=== PATIENT | female | born 1985 | race Caucasian/White ===

== ENCOUNTER 2018-09-17 00:56 | Emergency (ER) | payer SELFPAY ==
[2018-09-17 02:52] LABS: ABSOLUTE EOSINOPHILS # (AUTO) 0.3 10^3/uL (0.0-0.6); ABSOLUTE LYMPHOCYTES (AUTO) 1.9 10^3/uL (0.5-4.7); ABSOLUTE MONOCYTES (AUTO) 0.7 10^3/uL (0.1-1.4); ABSOLUTE NEUT (AUTO) 10.3 10^3/uL (1.7-8.2); BASOPHILS % (AUTO) 0.2 % (0-2); EOSINOPHILS % (AUTO) 2.2 % (0-6); HEMATOCRIT 42.3 % (36.0-47.0); HEMOGLOBIN 14.6 g/dL (12.0-15.5); LYMPHOCYTES % (AUTO) 14.6 % (13-45); MEAN CORPUSCULAR HEMOGLOBIN 29.2 pg (27.0-33.4); MEAN CORPUSCULAR HGB CONC 34.5 g/dL (32.0-36.0); MEAN CORPUSCULAR VOLUME 85 fl (80-97); MONOCYTES % (AUTO) 5.3 % (3-13); PLATELET COUNT 353 10^3/uL (150-450); RED BLOOD COUNT 5.01 10^6/uL (3.72-5.28); RED CELL DISTRIBUTION WIDTH 12.9 % (11.5-14.0); SEGMENTED NEUTROPHILS % (AUTO) 77.7 % (42-78); TOTAL CELLS COUNTED % (AUTO) 100 %; WHITE BLOOD COUNT 13.3 10^3/uL (4.0-10.5)
[2018-09-17 03:04] LABS: ALANINE AMINOTRANSFERASE 26 U/L (9-52); ALBUMIN 4.4 g/dL (3.5-5.0); ALKALINE PHOSPHATASE 75 U/L (38-126); ANION GAP 10 (5-19); ASPARTATE AMINO TRANSFERASE 23 U/L (14-36); BILIRUBIN,DIRECT 0.2 mg/dL (0.0-0.4); BILIRUBIN,TOTAL 0.3 mg/dL (0.2-1.3); BLOOD UREA NITROGEN 17 mg/dL (7-20); CALCIUM 10.1 mg/dL (8.4-10.2); CARBON DIOXIDE 24 mmol/L (22-30); CHLORIDE 105 mmol/L (98-107); GLUCOSE 103 mg/dL (75-110); LIPASE 78.8 U/L (23-300); POTASSIUM 4.6 mmol/L (3.6-5.0); SODIUM 138.6 mmol/L (137-145); TOTAL PROTEIN 7.9 g/dL (6.3-8.2)
[2018-09-17] MEDS ORDERED: NORMAL SALINE 1000 ML 1,000 ML IV ONE (03:06)
[2018-09-17] MEDS ORDERED: MORPHINE SULFATE 10 MG/ML INJ IV ONE (03:06)
[2018-09-17] MEDS ORDERED: ONDANSETRON HCL INJ/PF 4 MG/2 ML SDV IV ONE (03:06)
[2018-09-17] MEDS ORDERED: METOCLOPRAMIDE HCL ORAL SOLN 10 MG/10 ML UDCUP PO ONE (03:16)
[2018-09-17] MEDS ORDERED: LIDOCAINE 2% VISCOUS SOLN 20 ML UDCUP PO ONE (03:16)
[2018-09-17] MEDS ORDERED: MAG HYDROX/AL HYDROX/SIMETH SUSP 30 ML UDCUP PO ONE (03:16)
--- NOTE | 2018-09-17 04:17 | RADIOLOGY REPORT (SQ) ---
CLINICAL HISTORY: upper abdominal pain, RUQ COMPARISON: None. TECHNIQUE: US ABDOMEN DOPPLER LIMITED on 09/17/2018 3:05 AM [employer] INSPECTOR FINDINGS: Liver is fatty in echogenicity. There is no biliary dilatation. Gallbladder is normally distended without wall thickening, gallstones or pericholecystic fluid. Aorta is nonaneurysmal. Pancreas is not visualized. Common bile duct measures 3 mm. Right kidney measures 10.5 cm without hydronephrosis. IMPRESSION: Hepatic steatosis. Otherwise unremarkable right upper quadrant.
--- NOTE | 2018-09-17 04:18 | ER Document Report ---
ED General - General Chief Complaint: Abdominal Pain Stated Complaint: STOMACH PAIN Time Seen by Provider: 09/17/18 02:57 Notes: Patient is a pleasant 33-year-old female presents with complaint of epigastric abdominal pain. Some nausea and vomiting. Says is worse whenever she tries to eat or drink. Is been ongoing since Friday night which is approximately 3 days ago. No fevers. No diarrhea. No blood in emesis. No blood in her stool. No recent alcohol use. No history of any abdominal surgeries. She said there is no chance she could be . No dysuria. No other complaints at this time. TRAVEL OUTSIDE OF THE [place] IN LAST 30 DAYS: No - Related Data Allergies/Adverse Reactions: No Known Allergies Allergy (Verified 12/30/14 23:25) Past Medical History - Social History Smoking Status: Current Every Day Smoker Frequency of alcohol use: Social Drug Abuse: None Family History: Reviewed & Not Pertinent Patient has suicidal ideation: No Patient has homicidal ideation: No Renal/ Medical History: Denies: Hx Peritoneal Dialysis Review of Systems - Review of Systems Notes: My Normal Review Basic REVIEW OF SYSTEMS: CONSTITUTIONAL : Denies fever, chills, or sweats. Denies recent illness. RESPIRATORY: Denies cough, cold, or chest congestion. Denies shortness of breath, difficulty breathing, or wheezing. GASTROINTESTINAL: Gastric abdominal pain. Nausea and vomiting. GENITOURINARY: Denies difficulty urinating, painful urination, burning, frequency, or blood in urine. MUSCULOSKELETAL: Denies neck or back pain or joint pain or swelling. SKIN: Denies rash or skin lesions. NEUROLOGICAL: Denies altered mental status or loss of consciousness. Denies headache. Denies weakness or paralysis or loss of use of either side. Denies problems with gait or speech. Denies sensory or motor loss. ALL OTHER SYSTEMS REVIEWED AND NEGATIVE. Physical Exam - Vital signs Vitals: Temp Pulse Resp BP Pulse Ox 98.8 F 85 20 144/90 H 99 09/17/18 01:09/17/18 01:09/17/18 01:09/17/18 01:09/17/18 01:01 - Notes Notes: General Appearance: Well nourished, alert, cooperative, no acute distress, moderate obvious discomfort. Vitals: reviewed, See vital signs table. Head: no swelling or tenderness to the head Eyes: PERRL, EOMI, Conjuctiva clear Mouth: No decreasd moisture Lungs: No wheezing, No rales, No rhonci, No accessory muscle use, good air exchange bilaterally. Heart: Normal rate, Regular rythm, No murmur, no rub Abdomen: Normal BS, soft, No rigidity, No reproducible abdominal tenderness to palpation, No guarding, no rebound, no abdominal masses, no organomegaly Extremities: strength 5/5 in all extremities, good pulses in all extremities, no swelling or tenderness in the extremities, no edema. Skin: warm, dry, appropriate color, no rash Neuro: speech clear, oriented x 3, normal affect, responds appropriately to q uestions. Course - Re-evaluation Re-evalutation: 09/17/18 04:54 Patient symptoms improved significantly with the GI cocktail. She looks and feels well. She said no further vomiting. Ultrasound gallbladder was negative. She has no reproducible pain to palpation on exam. I suspect the most likely she has gastritis or nonbleeding ulcer based on the fact that her pain is epigastric and worse when she eats and drinks. Also GI cocktail improve her symptoms also further suggesting that her pain could be related to gastritis or nonbleeding ulcer. I talked her length about this. I talked about diet changes. I encouraged her to take [id number] omeprazole. Informed her that I will prescribe carefully however it can be expensive and therefore she can wait to fill this prescription to see if her symptoms do not improve with diet change and use of omeprazole alone. I will give her referral to GI. I encouraged her return to ER if she has intractable vomiting, worsening pain, or if she ever has any vomiting of blood or black tarry stools. Patient agrees with plan and will be discharged home. Dictation of this chart was performed using voice recognition software; therefore, there may be some unintended grammatical errors. - Vital Signs Vital signs: Temp Pulse Resp BP Pulse Ox 98.8 F 85 20 144/90 H 99 09/17/18 01:01 09/17/18 01:01 09/17/18 01:01 09/17/18 01:01 09/17/18 01:01 - Laboratory Result Diagrams: 09/17/18 02:40 09/17/18 02:40 Laboratory results interpreted by me: 09/17/18 09/17/18 02:40 04:05 WBC 13.3 H Absolute Neutrophils 10.3 H Urine Blood MODERATE H Discharge - Discharge Clinical Impression: Abdominal pain Qualifiers: Abdominal location: epigastric Qualified Code(s): R10.13 - Epigastric pain Condition: Good Disposition: HOME, SELF-CARE Additional Instructions: Your blood work did not show any concerning findings. Your ultrasound looking at your gallbladder did not show any concerning abnormalities with the gallbladder. I suspect that most likely your pain is related to gastritis or nonbleeding ulcer in your stomach. This will cause pain when you eat and drink and also cause you to vomit. Please buy [id number] omeprazole. This is the generic of Prilosec. Please take 20 mg of omeprazole every day for 2 weeks. After 2 weeks you should switch to Pepcid 20 mg a day. I have prescribed Carafate. You can start taking the Carafate if you are not having improvement of your pain after 2-3 days of treatment with the omeprazole. Diet is extremely important in treating this. Please drink non-caffeinated nonacidic fluids for the next 24 hours. After 24 hours you can start eating food again. Please avoid anything that spicy, acidic, or fatty or fried. Please eat only very bland foods such as bread or rice. Please avoid smoking. Please avoid coffee and tea. Please return to the ER immediately if you have worsening pain, fevers, intractable vomiting, or if you ever have any vomiting of blood or black or tarry stools. Avoid any NSAID use such as advil, ibuprofen, motrin, aleve, or naprosyn. Tylenol is safe to take. Prescriptions: Sucralfate [Carafate Susp 1 Gm/10 Ml Udcup] 1 gm PO ACHS 10 Days udc Forms: Return to Work Referrals: KAVITA CHOU MD [ACTIVE STAFF] - Follow up in 1 week
[2018-09-17 04:24] LABS: APPEARANCE,URINE CLOUDY; BILIRUBIN,URINE NEGATIVE (NEGATIVE); COLOR,URINE YELLOW; GLUCOSE, URINE NEGATIVE (NEGATIVE); KETONES,URINE NEGATIVE (NEGATIVE); LEUKOCYTE ESTERASE,URINE NEGATIVE (NEGATIVE); NITRITE,URINE NEGATIVE (NEGATIVE); PROTEIN,URINE NEGATIVE (NEGATIVE); URINE SPECIFIC GRAVITY 1.021; UROBILINOGEN,URINE NEGATIVE mg/dL (<2.0)
[2018-09-17] MEDS ORDERED: FAMOTIDINE 20 MG TABLET PO ONE (04:44)
[2018-09-17] MEDS ORDERED: ONDANSETRON ODT 4 MG TAB (6 TAB/ER DISP) PO PRN (04:44)
[2018-09-17 05:01] VITALS: BP 136/81
== END 2018-09-17 05:01 | disposition home or self-care (01) ==
LOC: ER 00:56
DX: R10.13 Epigastric pain (principal); R11.2 Nausea with vomiting, unspecified; F17.200 Nicotine dependence, unspecified, uncomplicated
CPT/HCPCS: 99284; 96361; 96374; 36415; 83690; 85025; 80053; 81001; 76705; 93976; J3490; J2405; J7030